=== PATIENT | female | born 1960 | race Two or more races ===

== ENCOUNTER → 2024-06-21 | Outpatient (BNVA) | payer MEDICAID, SELFPAY | END | disposition home or self-care (01) | PROVIDERS: PCP Physician Assistant; Referring Provider Physician Assistant; Visit Provider Urology | DX: G89.4 Chronic pain syndrome (principal); N35.92 Unspecified urethral stricture, female; Z87.440 Personal history of urinary (tract) infections; I10 Essential (primary) hypertension | CPT/HCPCS: 81003; 99212; G0463 ==

== ENCOUNTER 2024-07-07 05:30 | Day surgery (SDC) | payer MEDICAID, SELFPAY ==
--- NOTE | 2024-07-06 06:40 | EKG_ITS ---
[facility] Test Date: 2024-07-06 Pat Name: NIRMAL ALBRIGHT Department: Room: - Gender: Female Addiction Treatment Counselor: DELMY : 1960 Requested By: Vishal Davila Order Number: [id number] Reading MD: Vishal Davila Measurements Intervals [place] Rate: 80 P: 78 AL: 183 QRS: 72 QRSD: 78 T: 72 QT: 362 QTc: 419 Interpretive Statements SINUS RHYTHM No previous ECG available for comparison /store/S0/[id number]/ecg/[id number]
[2024-07-06 08:59] VITALS: BMI 25.1
[2024-07-06 09:30] LABS: Collection Type, Urine Clean Catch
[2024-07-06 09:45] LABS: Basophils % (Auto) 1 % (0-2.5); Eosinophils # (Auto) 0.1 Thou/mm3 (0.0-0.5); Eosinophils % (Auto) 3 % (0-10); Hematocrit 43.1 % (36.0-46.0); Hemoglobin 14.1 g/dL (12.0-16.0); Immature Granulocytes % (Auto) 0 % (0-0); Lymphocytes # (Auto) 1.1 Thou/mm3 (1.0-4.8); Lymphocytes % (Auto) 29 % (10-50); Mean Corpuscular HGB Conc 32.7 g/dl (31.0-37.0); Mean Corpuscular Hemoglobin 30.8 pg (25.0-35.0); Mean Corpuscular Volume 94 fL (80-100); Monocytes # (Auto) 0.4 Thou/mm3 (0.0-0.8); Monocytes % (Auto) 9 % (0-12); Neutrophils # (Auto) 2.2 Thou/mm3 (1.8-7.7); Neutrophils % (Auto) 58 % (37-80); Nucleated Red Blood Cell % 0 /100 WBC (0); Platelet Count 198 Thou/mm3 (140-440); Red Blood Count 4.58 Miln/mm3 (4.00-5.20); White Blood Count 3.8 Thou/mm3 (3.6-11.0)
[2024-07-06 09:54] LABS: Bacteria,Urine Rare; Bilirubin,Urine Negative (Negative); Blood,Urine 1+ (Negative); Clarity,Urine Clear (Clear/Hazy); Color,Urine Lt-Yellow (Lt Yel-Yel); Glucose, Urine Negative (Negative); Ketones,Urine Negative (Negative); Leukocyte Esterase,Urine Negative (Negative); Nitrite,Urine Negative (Negative); PH,Urine 6.5 (5.0-7.0); Protein,Urine Negative (Neg - Trace); RBC,Urine 11 /hpf (0-3); Specific Gravity,Urine 1.021 (1.001-1.035); Squamous Epithelial Cell,Urine < 1 /hpf (0-5); Urobilinogen,Urine Negative mg/dL (0.0-1.0); WBC,Urine 2 /hpf (0-5)
[2024-07-06 09:58] LABS: Partial Thromboplastin Time 28.7 Seconds (22.0-36.0)
[2024-07-06 10:10] LABS: Alanine Aminotransferase 13 U/L (10-49); Albumin, Serum 4.7 gm/dL (3.4-4.8); Albumin/Globulin Ratio 2.1 (1.2-2.2); Alkaline Phosphatase 88 U/L (46-116); Anion Gap 10 (7-16); Aspartate Amino Transferase 20 U/L (0-34); BUN/Creatinine Ratio 14 Ratio (12-20); Bilirubin,Total 0.6 mg/dL (0.3-1.2); Blood Urea Nitrogen 11 mg/dL (9-23); Calcium 9.5 mg/dL (8.3-10.6); Calcium (Corrected) 9.5 mg/dL (8.5-10.1); Carbon Dioxide 27.7 mMol/L (20.0-31.0); Chloride 106 mMol/L (98-107); Creatinine (Component) 0.8 mg/dL (0.6-1.3); Estimated Creatinine Clearance 70.9 mL/min (>60); Globulin 2.2 gm/dL (2.3-3.5); Glucose 115 mg/dL (74-106); Osmolality,Calculated 287 (275-295); Potassium 4.2 mMol/L (3.4-5.1); Sodium 144 mMol/L (136-145); Total Protein 6.9 gm/dL (5.7-8.2); eGFR > 60 See Note
[2024-07-07] VITALS (7 sets, daily range): BP systolic 106–151; BP diastolic 68–95; PULSE 55–81; RESP 12–18; TEMP 36.1–36.7; O2SAT 97–100; BMI 25.0
--- NOTE | 2024-07-07 09:21 | SUR.PHASEI ---
pt received from OR in recovery bay 5. pt asleep but responds to voice, breathing unlabored on 2l nc. v/s stable. pt dressing to left lower abd cdi. report received from Dr. Church and Thi FATIMA.
--- NOTE | 2024-07-07 09:30 | ESOP_ITS ---
Date of Procedure 07/07/24 Pre Op Diagnosis Left inguinal hernia Post Op Diagnosis Same. Procedure Repair of sliding the left inguinal hernia on 07/07/2024 Findings This patient has weakness in the posterior wall of the inguinal canal and the sliding left inguinal hernia that required repair. Procedure Description Patient was examined in the preop area. Site and site were marked. Procedure was discussed with the patient in detail. The risk benefits alternatives were discussed with the patient and informed consent was obtained. The risks include bleeding infection recurrence of the hernia testicular atrophy and anesthesia related risks. The patient was brought to the operating room and placed on the operating table in supine position. General anesthesia was administered in a satisfactory manner. IV antibiotics were given to the patient. Local anesthesia 0.25% Marcaine was used as an adjunct. Curvilinear oblique incision is made in the left groin. This was deepened through the layers of skin subcutaneous tissue and Char's fascia. The superficial inferior epigastric veins were ligated and divided. Hemostasis was achieved. The hernia protrusion is quite large and extending out to from the external ring. External oblique aponeurosis was cleared and the external ring was defined. The shelving edge of the inguinal ligament was defined externally. A longitudinal incision was made in the external oblique aponeurosis. The inguinal canal was opened. The ilioinguinal nerve was protected. Upper and lower flaps of the external oblique aponeurosis were dissected away from the hernia sac. This was retracted with a self-retaining retractor. The loose areolar tissue was incised and the hernia sac was identified. Hernia sac was gently dissected circumferentially at the neck. After the sac was from the round ligament. It was examined and the sliding nature of the hernia sac was found. The peritoneum was closed with 3-0 Vicryl pursestring suture and the hernia was reduced en stephany. There was no tight hernia ring. The round ligament was ligated and removed. The posterior wall of the inguinal canal was then examined. The conjoined tendon was defined. The posterior wall was repaired with interrupted 0 Ethibond interrupted sutures. This was approximating the the shelving edge of the inguinal ligament with the conjoined tendon and fascia transversalis. The first suture is passing through the periosteum of the pubic tubercle. The second suture was passing through the Quentin's ligament. Rest of them passing through the shelving edge of the inguinal ligament, fascia transversalis and conjoined tendon. Internal ring was closed. After the repair was completed, a releasing incision was made in the internal oblique underneath the external oblique and rectus sheath. Operative field is thoroughly irrigated with saline solution and hemostasis is again achieved. The ilioinguinal nerve placed back into the inguinal canal. External oblique aponeurosis is approximated by 3-0 PDS continuous suture. Subcutaneous tissues approximated by 3-0 Vicryl interrupted sutures and skin is approximated by 4-0 Monocryl subcuticular stitches. Dermabond is applied. Patient tolerated procedure very well. Complications none. Anesthesia GETA Drains None. Implants None. Pathology / specimen Other (Round ligament) Estimated Blood Loss 5 Disposition PACU Surgeon Vishal Davila MD Surgical Staff Operation Date: 07/07/24 07:30 Case Staff Anesthesiologist: Vernon Church RN First Assistant: Preeti Long surgical technology student Britany hand frame surgical elastic knitter Linden FATIMA merchant seaman Thi FATIMA merchant seaman
--- NOTE | 2024-07-07 09:44 | SUR.PHASEI ---
pt able to tolerate oral fluids without difficulty swallowing or nausea/vomiting.
--- NOTE | 2024-07-07 10:27 | SUR.PHASEII ---
pt awake and alert, breathing unlabored on room air. v/s stable. pt dressing to left lower abd cdi. pt able to ambulate to wheelchair with steady gait. d/c instructions given with Nito in room using manganese heater Samanta michael, all questions answered. pt d/c via wheelchair with all belongings.
== END 2024-07-07 10:27 | disposition home or self-care (01) ==
PROVIDERS: PCP Physician Assistant; Referring Provider Specialist; Visit Provider Specialist
PROC: (CPT 49525; principal; 2024-07-07 07:30)
DX: K40.90 Unilateral inguinal hernia, without obstruction or gangrene, not specified as recurrent (principal); Z01.810 Encounter for preprocedural cardiovascular examination
CPT/HCPCS: 49525; 36415; 80053; 81001; 85025; 85730; 93005; A4217; A4649; J0131; J0690; J1100; J1885; J2250; J2405; J2704; J3010; J3490; A9270

== ENCOUNTER → 2024-08-23 | Outpatient (BNVA) | payer MEDICAID, SELFPAY | END | disposition home or self-care (01) | PROVIDERS: PCP Physician Assistant; Referring Provider Physician Assistant; Visit Provider Urology | DX: D41.4 Neoplasm of uncertain behavior of bladder (principal); N35.92 Unspecified urethral stricture, female; G89.4 Chronic pain syndrome; R10.2 Pelvic and perineal pain; I10 Essential (primary) hypertension; E78.00 Pure hypercholesterolemia, unspecified; E03.9 Hypothyroidism, unspecified | CPT/HCPCS: 52214; 81003; 96372; A4217; A4649; C1894; J1580; A9270 ==

== ENCOUNTER → 2025-01-20 | Outpatient (CLI) | payer BC, SELFPAY ==
[2025-01-20 11:53] LABS: Basophils # (Auto) 0.0 Thou/mm3 (0.0-0.2); Basophils % (Auto) 1 % (0-2.5); Eosinophils # (Auto) 0.1 Thou/mm3 (0.0-0.5); Eosinophils % (Auto) 2 % (0-10); Hematocrit 42.4 % (36.0-46.0); Hemoglobin 13.8 g/dL (12.0-16.0); Immature Granulocytes Auto 0.01 Thou/mm3 (0.00-0.00); Lymphocytes # (Auto) 0.6 Thou/mm3 (1.0-4.8); Lymphocytes % (Auto) 16 % (10-50); Mean Corpuscular HGB Conc 32.5 g/dl (31.0-37.0); Mean Corpuscular Hemoglobin 31.1 pg (25.0-35.0); Mean Corpuscular Volume 96 fL (80-100); Monocytes # (Auto) 0.6 Thou/mm3 (0.0-0.8); Monocytes % (Auto) 14 % (0-12); Neutrophils # (Auto) 2.8 Thou/mm3 (1.8-7.7); Neutrophils % (Auto) 68 % (37-80); Nucleated Red Blood Cell # 0.00 Thou/mm3 (0.00-0.00); Nucleated Red Blood Cell % 0 /100 WBC (0); Platelet Count 194 Thou/mm3 (140-440); RDW Standard Deviation 49.4 fL (36.4-46.3); Red Blood Count 4.44 Miln/mm3 (4.00-5.20); White Blood Count 4.1 Thou/mm3 (3.6-11.0)
[2025-01-20 12:16] LABS: Glucose Estimated Average 123 mg/dL (80-131); Hemoglobin A1C 5.9 % Hgb (4.8-6.0)
[2025-01-20 12:52] LABS: Alanine Aminotransferase 15 U/L (10-49); Albumin, Serum 4.9 gm/dL (3.4-4.8); Albumin/Globulin Ratio 2.1 (1.2-2.2); Alkaline Phosphatase 90 U/L (46-116); Anion Gap 8 (7-16); Aspartate Amino Transferase 24 U/L (0-34); BUN/Creatinine Ratio 18 Ratio (12-20); Bilirubin,Total 0.5 mg/dL (0.3-1.2); Blood Urea Nitrogen 14 mg/dL (9-23); Calcium 9.7 mg/dL (8.3-10.6); Calcium (Corrected) 9.7 mg/dL (8.5-10.1); Carbon Dioxide 30.4 mMol/L (20.0-31.0); Chloride 105 mMol/L (98-107); Creatinine (Component) 0.8 mg/dL (0.6-1.3); Globulin 2.3 gm/dL (2.3-3.5); Glucose 104 mg/dL (74-106); Osmolality,Calculated 285 (275-295); Potassium 4.1 mMol/L (3.4-5.1); Sodium 143 mMol/L (136-145); Total Protein 7.2 gm/dL (5.7-8.2); eGFR > 60 See Note
== END | disposition home or self-care (01) ==
PROVIDERS: PCP Physician Assistant; Referring Provider Specialist; Visit Provider Specialist
DX: Z01.812 Encounter for preprocedural laboratory examination (principal); K40.91 Unilateral inguinal hernia, without obstruction or gangrene, recurrent; K41.90 Unilateral femoral hernia, without obstruction or gangrene, not specified as recurrent
CPT/HCPCS: 36415; 80053; 83036; 85025

== ENCOUNTER 2025-01-26 15:20 | Observation (INO) | payer BC, SELFPAY ==
[2025-01-26] VITALS (10 sets, daily range): BP systolic 119–166; BP diastolic 78–89; PULSE 77–118; RESP 16–21; TEMP 36.5–36.9; O2SAT 96–100; BMI 24.5
--- NOTE | 2025-01-26 15:38 | PD.EDWOUND ---
ED Wound/Laceration-RME/HPI General Chief Complaint: Wound Recheck / Suture Removal Stated Complaint: SURGICAL AREA HERNIA BLEED SENT BY [facility] Time Seen by Provider: 01/26/25 15:36 Arrival date/time: 01/26/25 15:20 64-year-old female patient with significant history of hypertension, hypothyroidism was sent to us by general surgeon Dr. Davila for possible admission regarding control of surgical hematoma evacuation, status post hernia repair this morning. According to the patient been having bleeding to the area, and worsening swelling severity moderate. Associated with discomfort. Patient is currently not taking any blood thinner. Been n.p.o. since last night Related Data Home Medications ?Medication ?Instructions ?Recorded ?Confirmed enalapril maleate 10 mg tablet 10 mg PO QDAY #0 tabs 04/24/16 08/23/24 (Vasotec) oxybutynin chloride 10 mg 10 mg PO QDAY 12/31/21 08/23/24 tablet,extended release 24 hr amitriptyline 25 mg tablet 25 mg PO HS 07/06/24 08/23/24 atorvastatin 10 mg tablet 10 mg PO HS 07/06/24 08/23/24 levothyroxine 25 mcg tablet 25 mcg PO DAILY 07/06/24 08/23/24 loratadine 10 mg tablet 10 mg PO DAILY 07/06/24 08/23/24 montelukast 10 mg tablet 10 mg PO DAILY 07/06/24 08/23/24 Previous Rx's ?Medication ?Instructions ?Recorded hydrocodone 10 mg-acetaminophen 1 tab PO Q6H PRN pain #20 tabs 07/07/24 325 mg tablet Allergies Allergy/AdvReac Type Severity Reaction Status Date / Time No Known Allergies Allergy Verified 01/26/25 15:23 Review of Systems Review of Systems Narrative Review of Systems: Review of system reviewed and within normal limits except mentioned in HPI ED Exam Narrative Physical exam: VITAL SIGNS: Reviewed. GENERAL APPEARANCE: Alert and interactive, follows commands, no acute distress, HEAD AND FACE: Non-traumatic. ENT: PERRL, pink conjunctivitis, eyelid no trauma, Mucous membrane moist. NECK: Supple, nontender, no nuchal rigidity. CHEST: No tenderness, no crepitus, no paradoxical movement, no retractions. LUNGS: Clear, well ventilated, symmetric, no rales, no wheezing, no ronchi, no stridor, good breath sounds bilaterally. HEART: Regular rate, regular rhythm, no murmur, no gallops. ABDOMEN: Soft, positive bowel sounds, nondistended, no guarding, nontender, no rebound, no masses, RECTAL: Deferred. GENITAL: Deferred. NEUROLOGICAL: Gross motor function intact sensory function intact, Appropriate for age. MUSCULOSKELETAL: low back nontender, full range of motion. EXTREMITIES: Left inguinal hernia repair with jocelyne, swelling, and palpable hematoma noted with tenderness , full range of motion. SKIN: Color pink, dry, no rash, no lacerations, no abrasions, no contusions. LYMPHATICS: Deferred. Course Quality Measures none Orders Category Date Time Status Place in Observation Status Routine Admission 01/26/25 15:37 Active NPO NOW Care 01/26/25 15:36 Active Diet NPO (NOW) Diet 01/26/25 15:36 Active Vital Signs Vital signs: Vital Signs Temperature 97.8 F 01/26/25 15:35 Pulse Rate 102 H 01/26/25 15:35 Respiratory Rate 18 01/26/25 15:35 Blood Pressure 166/86 H 01/26/25 15:35 Pulse Oximetry (%) 98 01/26/25 15:35 Oxygen Delivery Method Room Air 01/26/25 15:35 Wound / Laceration MDM Narrative MDM Narrative:: Spoke with Dr. Davila, who told me that he is going to do surgery today. Patient was admitted under his care. He told me not to order for repeat blood test today. Patient stable for his admission. Patient data External records reviewed:: None Clinical information provided by:: patient Social determinants that could affect healthcare access:: none Patient has the following chronic illnesses:: Hypertension How is presenting disease/condition affected by chronic disease/condition?: uneffected by Evaluation data The following diagnostics were reviewed and interpreted by me:: other (specify) (None) Lab and/or radiology exams considered but not ordered:: None Interpretation Summary: None Medications / Prescriptions Medications or Prescriptions considered but not ordered:: None Medication administrations:: Medication Administration History Acetaminophen (Ofirmev Inj) 1,000 mg in 100 mls @ 250 mls/hr IV Q6HR PRN PRN Reason: PAIN 1-6 (mild-mod Stop: 01/27/25 18:52 Last Admin: 01/26/25 20:25 Dose: 250 mls/hr Documented By: TB Ondansetron HCl (Ondansetron Inj 2 Mg/Ml Inj 2 Ml) 4 mg IVP Q6HR PRN; Protocol PRN Reason: NAUSEA OR VOMITING Stop: 01/27/25 18:52 Discontinued Medications Fentanyl Citrate (Fentanyl Cit Inj 50 Mcg/Ml Amp 2ml) 50 mcg IVP Q5M PRN PRN Reason: PAIN SCALE 7-10 (Severe Stop: 01/26/25 20:53 IV Tylenol Zofran Consultations Consultation(s) initiated? (list below): Yes Consultation #1 (Physician, Specialty, Details): Dr Davila general surgeon Diagnosis Wound Differential Diagnosis: other (Postop hematoma status post inguinal repair for hernia) Most likely diagnosis given after review of the tests above:: Postop hematoma Admission Indicated Admission indicated?: indicated Admission Request Was there a request for admission?: Yes Admission Attestation Admission request attestation: Admitted by Dr. Davila Disposition Plan Disposition Plan: Admit Discharge Plan Plan Patient Disposition: Admit Acute Care w/in Hospital Problem List Clinical Impression: Postoperative hematoma Patient/Caregiver Discharge Instructions Other Activity Instructions:: May take shower after [address], Saran wrap over it empty the Surinder-Noonan every 6 hours and chart. Puede ducharse despu?s de 48 horas. Cubra la ramya con papel film. Vac?e el drenaje de Surinder-Noonan cada 6 horas y registre la cantidad. No consuma aloe vera. Siga mode dieta l?quida kristina y progrese a mode dieta regular seg?n la tolere. Diet Instructions: Do not take aloe vera clear liquid diet advance to regular as tolerated
--- NOTE | 2025-01-26 16:07 | ESHP_ITS ---
HPI Date of Admission 01/26/2025 Chief Complaint Chief Complaint: Left groin hematoma HPI This patient had recurrent left inguinal hernia repair and post operatively developed superficial wound hematoma and needs I & D. The risk benefits and alternatives were discused with the patient and Informed consent was obtained. Past Medical History Past Medical History NEUROLOGIC: Positive Neurological Disorders and Migraine; Negative Seizures CARDIAC: Positive Cardiac Disorders, Hypercholesterolemia, Valvular Heart Disease and Hypertension; Negative Congestive Heart Failure RESPIRATORY: Positive Pneumonia; Negative Chronic Obstructive Pulmonary Disease (COPD) GASTROINTESTINAL: Positive Gastrointestinal Disorders and Hemorrhoids GENITOURINARY: Positive Genitourinary Disorders (frequent UTI) and Inguinal Hernia; Negative Renal Disease REPRODUCTIVE: Positive Previous Pregnancies (4) MUSCULOSKELETAL: Positive Musculoskeletal Disorders and Arthritis ENDOCRINE: Positive Endocrine Disorders and Hypothyroidism; Negative Diabetes Mellitus Type 1 or Diabetes Mellitus Type 2 HEMATOLOGIC: Negative Blood Disorders PSYCHO/SOCIAL: Negative Depression or Anxiety OTHER HISTORY: Positive Hospitalization (vertigo), Chicken Pox and Measles; Negative Autoimmune Disease, Shingles, Blood Transfusions, Blood Transfusion Reaction, Anesthesia Reactions or Cancer Family History FAMILY HISTORY: Positive Family Cardiac Disorders, Family Cancer and Family Surgery; Negative Family Psychiatric Problems, Family Respiratory Disorders, Family Gastrointestinal Problems or Family Anesthesia Reaction Surgical History SURGICAL: Positive Hysterectomy Social History SMOKING STATUS: Never smoker Meds Home Medications and Allergies Home Medications ?Medication ?Instructions ?Recorded ?Confirmed ?Type enalapril maleate 10 mg tablet 10 mg PO QDAY #0 tabs 0 04/24/16 08/23/24 History (Vasotec) oxybutynin chloride 10 mg 10 mg PO QDAY 12/31/2108/23 History tablet,extended release 24 hr amitriptyline 25 mg tablet 25 mg PO HS 07/06/24 History atorvastatin 10 mg tablet 10 mg PO HS 07/06/24 5 History levothyroxine 25 mcg tablet 25 mcg PO DAILY 07/06/24 0 08/23/24 History loratadine 10 mg tablet 10 mg PO DAILY 07/06/2408/09 History montelukast 10 mg tablet 10 mg PO DAILY 07/06/2408/09 History Allergies Allergy/AdvReac Type Severity Reaction Status Date / Time No Known Allergies Allergy Verified 01/26/25 15:23 Exam Constitutional Constitutional: no acute distress Routine HEENT Exam Head: Present normocephalic Eye: Present EOMI and PERRL ENT: Present mucous membranes moist Routine Neck Exam Neck: Present supple and trachea midline Routine Chest/Breast/Axilla Exam Chest wall: Absent tenderness or mass Routine Respiratory Exam Respiratory: Present chest non-tender, lungs clear, normal breath sounds and no resp distress; Absent respiratory distress Routine Cardiovascular Exam Cardiovascular: Present RRR Routine Abdominal Exam Abdominal: Present soft and normoactive bowel sounds (There is an incision in the left groin and a hematoma that requires exploration and drainage.) Routine Extremities Exam Extremities: Present full ROM Routine Skin Exam Skin: Present intact, dry and warm Routine Neurological Exam Neurological: Present alert, oriented X3 and CN II-XII intact Routine Psychiatric Exam Psychiatric: Present normal affect and normal thought process Assessment & Plan Problem List (1) Left inguinal hernia: Status: Acute (2) Postoperative hematoma: Status: Acute Plan Exploration of left groin and incision and drainage of postoperative hematoma. The risks benefits and alternatives were discussed with the patient and and an informed consent was obtained. Quality Measures Quality Measures none
[2025-01-26] MEDS: ACETAMINOPHEN IVPB 1,000 MG/100 ML VIAL 250 MG IV (20:25)
--- NOTE | 2025-01-26 20:28 | SUR.PHASEI ---
2020 To PACU awake and alert following simple commands no complaints, vitals stable continue to monitor pt status and vitals .
--- NOTE | 2025-01-26 20:39 | PD.SUROPNT ---
Date of Procedure 01/26/25 Pre Op Diagnosis Hematoma left groin Post Op Diagnosis Same Procedure Incision and drainage of hematoma left groin on January 26, 2025 Findings This patient had a superficial wound hematoma after left inguinal recurrent hernia repair. After the surgery investigation with the family revealed that she has been drinking a large amount of aloe vera juice as a natural remedy the family was informed that aloe vera or drinking may produce thinning of the blood like aspirin and therefore causes of bleeding. There was no active bleeding there was just couple of small arterial pumper so they required coagulation and ligation. Other than that there was no major bleeding except some oozing from the surfaces. Procedure Description This patient was admitted from the emergency room after a left recurrent inguinal hernia repair surgery done at an outside facility. This patient was interviewed and risk benefits and alternatives of the procedure of incision and drainage of the hematoma were discussed with the patient and informed consent was obtained. Patient was taken to the operating room and general anesthesia was administered in satisfactory manner. She was given IV antibiotics. A timeout procedure was carried out. The abdomen groin and thigh regions were prepped and draped in usual manner. The jocelyne were removed and the wound was explored and a about 30 cc of subcutaneous hematoma was evacuated. Pulsavac gentamicin solution was used for pulsatile irrigation to remove small blood clots from the surfaces. After that I found 2 small pumpers that required ligation and that was done with a 2-0 chromic suture ligation technique. Rest of the oozing surfaces were examined and they were all controlled with electrocautery. The repair of the hernia was intact. After all that i left the cavity open without pressure to see if there will be any bleeding or collection of blood in the hematoma cavity however that did not happen. Due to the oozing nature of the bleeding I considered that she may be taking aspirin without telling us or some other anticoagulant she is getting. I decided to place Surgicel in the wound and then decided to drain the wound with Surinder-Noonan drain. The Surinder-Noonan drain was inserted into the hematoma cavity by separate stab incision and tied to the skin with 2-0 nylon suture. After I was satisfied there is no bleeding I closed the skin with 2-0 nylon interrupted sutures. Sterile dressing is applied. Patient tolerated procedure very well. The findings were discussed with the patient and the family. During this interview it was revealed that she has been drinking aloe vera juice on a regular basis. The literature was given to the patient's family that drinking Aloe Vera juice acts like aspirin because it has components similar to aspirin. Anesthesia GETA Drains Surinder Noonan 7 fr flat Pathology / specimen None Estimated Blood Loss 30 Condition Stable Disposition PACU Surgeon Vishal Davila MD Surgical Staff Operation Date: 01/26/25 18:15 Case Staff SUPERVISOR MIRROR FABRICATION: Spencer Escobar RNcomputer programmer chief: Bree Diehl Photographic Restorer Linden AKUA otolaryngology teacher
--- NOTE | 2025-01-26 20:51 | SUR.PHASEI ---
2039 Eyes closed resting comfortably, no complaints at this time, continue to monitor pt vital signs and status.
--- NOTE | 2025-01-26 21:19 | SUR.PHASEI ---
2115 Continues to rest comfortably, no complaints daughter at bedside, continue to monitor pt vital signs and status.
--- NOTE | 2025-01-26 21:51 | SUR.PHASEII ---
2124 Tolerating clear liquids, no complaints, no s/s of distress or pain noted. 2129 Teach pt and daughter how to drain and record CRISTOBAL drain 2139 up to bathroom void and flush with daughter at her side 2150 Discharge home with and daughter in stable condition ,no complaints, no change to abdomen dressing/ CRISTOBAL drain.
== END 2025-01-26 18:47 | disposition home or self-care (01) ==
LOC: SERX 16:25 → SERHOLD 18:40
PROVIDERS: Admitting Provider Specialist; Emergency Provider Family Medicine; PCP Physician Assistant; Visit Provider Specialist
PROC: (CPT 10140; principal; 2025-01-26 18:00)
DX: L76.32 Postprocedural hematoma of skin and subcutaneous tissue following other procedure (principal); S30.12XA Contusion of groin, initial encounter; Y83.8 Other surgical procedures as the cause of abnormal reaction of the patient, or of later complication, without mention of misadventure at the time of the procedure; K40.90 Unilateral inguinal hernia, without obstruction or gangrene, not specified as recurrent
CPT/HCPCS: 10140; 99281; A4649; G0378; J0131; J0694; J2250; J2371; J2704; J3010